=== PATIENT | male | born 1975 | race Caucasian/White ===

== ENCOUNTER 2016-09-05 19:48 | Observation (INO) | payer OTHER ==
[~2016-09-05] VITALS: Ht 172.7 cm; Wt 98.9 kg
--- NOTE | ~2016-09-05 | HC ---
[facility] [place] [address] CONSULTATION Name: HOLLANDDELMY Ghotra Shahbaz Room #: 215-P [facility] Lino Good#: [id number] Admission: 09/05/16 Attend Phys: Cory Morris MD Discharge: 09/06/16 Date of : 71 Report #: [id number] THIS REPORT FOR: //name// CC: NAS physician/PCP Cory Morris REASON FOR CONSULTATION: Chest pain, unstable angina. HISTORY OF PRESENT ILLNESS: The patient is a 40-year-old with known coronary artery disease, diabetes, hypertension, hyperlipidemia and tobacco abuse who presents with complaints of chest pain that lasted approximately 3 hours, that feels like his chest pain. There was no radiation. It was not really worse with any sorts of activities and appeared to improve after he received medications in the ER. He was transferred from [place] for further evaluation. He is currently chest pain-free. He denies PND, orthopnea. He denies exertional dyspnea. He denies presyncope or syncope. A 12-point review of systems was performed and was negative other than what I mentioned above, but he did have some nausea associated with the chest pain. PAST MEDICAL HISTORY: 1. Coronary artery disease, status post multiple stents to the RCA in 05/2015, again in 09/[address] Simon and most recently a stent to the proximal RCA on 07/28/2016 at [facility] with a Resolute drug-eluting stent that was 3.5 x 9 mm. The rest of his catheterization showed no disease in the left main. There was a 50%-70% lesion in the LAD followed by a long 50% lesion in the LAD in the mid segment. The circumflex was free of any significant disease. There were 2 other stents in the RCA in the proximal and distal segments and the stents were widely patent. 2. Hypertension. 3. Diabetes. 4. Hyperlipidemia. 5. Prior inferior myocardial infarction. 6. Echocardiogram on 07/26/2016 showing an EF of 55%-60% with inferior hypokinesis. 7. Tobacco abuse. SOCIAL HISTORY: Continues to smoke. FAMILY HISTORY: Mom had CAD in her 30s. ALLERGIES: INCLUDE PENICILLIN, CODEINE. ADDITIONAL MEDICATIONS: Please review. HOME MEDICATIONS: Please review, includes Effient. He reports that he missed a single dose of Effient yesterday, but has not missed any other doses. [facility] [address] [place] [address] CONSULTATION Name: HOLLANDDELMY Shahbaz Room #: 215-P [facility] Lino Good#: [id number] Admission: 09/05/16 Attend Phys: Cory Morris MD Discharge: 09/06/16 Date of : 71 Report #: [id number] PHYSICAL EXAMINATION: VITAL SIGNS: Temperature is 36.4, pulse 74, respiration 16, blood pressure 111/72, sats 94%. GENERAL: He is in no acute distress. HEENT: Oropharynx is clear. NECK: Supple; no thyromegaly. HEART: Regular rate and rhythm with no murmurs, rubs or gallops. LUNGS: Clear to auscultation bilaterally. ABDOMEN: Soft, nontender, nondistended, no hepatosplenomegaly. EXTREMITIES: No clubbing, cyanosis, edema. NEUROLOGIC: Cranial nerves 2-12 are intact. DATA: His 12-lead EKG shows sinus rhythm with evidence of an old inferior infarct and he has some mild ST elevations in the inferior leads, which are chronic and unchanged from all his prior EKGs including the ones from 05/2016. LABORATORY DATA: White count 7.3, hemoglobin 17, platelets 174. Sodium 131, potassium 3.9, BUN 9, creatinine 1.3, T- bilirubin mildly elevated at 1.4. AST, ALT are okay. Triglycerides are 3919, LDL unable to calculate, HDL is 19. His troponins have all been negative. ASSESSMENT: In summary, the patient is a 40-year-old with history of coronary artery disease presenting with chest pain. Thus far, his EKG shows no acute ischemia and his troponins remain negative. The etiology of his chest pain is unclear. I recommend undergoing a nuclear stress test tomorrow to rule out any ischemia. If this is normal, he can be discharged home. <ELECTRONICALLY SIGNED> By: Rosas Ruiz MD 09/14/16 0854 1108 194 Rosas Ruiz MD /nt
--- NOTE | ~2016-09-05 | EKG ---
[address] [address] ELECTROCARDIOGRAM REPORT Name: DELMY LINO Room #: [facility]#: [id number] Admission: 09/05/16 Attend Phys: Cory Morris MD Discharge: 09/06/16 Date of : 71 Report #: [id number] THIS REPORT FOR: //name// [facility] Test Date: 2016-09-06 Test Time: 01:29:27 Pat Name: DELMY LINO Department: Room: [facility] Gender: M Deputy Program Manager: [email or web address] : 1975 Requested By: Coco Lazcano Order Number: [id number] MD: Rosas Ruiz Measurements Intervals [place] Rate: 75 P: 47 [place]: 180 QRS: 14 QRSD: 111 T: -32 QT: 388 QTc: 434 Interpretive Statements Sinus rhythm Inferior infarct, age indeterminate Compared to ECG 09/28/2015 07:04:43 Ectopic atrial rhythm no longer present Myocardial infarct finding still present Electronically Signed On 09-06-2016 20:13:57 CDT by Rosas Ruiz [email or web address] <ELECTRONICALLY SIGNED> By: Rosas Ruiz MD 09/06/162012 0129 8 Rosas Ruiz MD /EPI
[~2016-09-05 19:48] MED LIST: ASPIR 8181 MG PO; ASPIRIN325 PO; ATORVASTATIN CA40 MG PO; CARISOPRODOL 3350 MG PO; COLACE100 MG PO; EFFIENT10 MG PO; FENOFIBRATE160 MG PO; HUMALOG100 UNIT/1 SUBQ; LEVEMIR SUBQ; LEVEMIR100 UNIT/1 SUBQ; LISINOPRIL10 MG PO; LISINOPRIL20 MG PO; METFORMIN HCL500 MG PO; NICOTINE TRANSD21 M1; NITROGLYCERIN0.4 MG; NORCO 10-325 T1 EACH PO; NOVOLOG100 UNIT/1 SUBQ; OMEPRAZOLE 20 M20 M1 PO; PRAVACHOL40 MG PO; PROTONIX 20 MG20 M1 PO; TOPROL XL25 MG PO; TOPROL XL50 MG PO; XANAX 0.25 MG0.25 MG PO; ZANAFLEX4 MG PO; ZOLOFT50 MG PO; ZYRTEC10 MG PO
[2016-09-05 21:05] VITALS: BP 147/99
[2016-09-05] MEDS ORDERED: NORCO 10-325 T1 EACH PO (21:23)
[2016-09-05] MEDS ORDERED: XANAX 0.5 MG0.5 MG PO (21:23)
[2016-09-05] MEDS ORDERED: AMARYL2 MG PO (21:24)
[2016-09-05] MEDS ORDERED: TOPAMAX100 MG PO (22:29)
[2016-09-05 23:55] VITALS: BP 118/80
[2016-09-06 02:12] LABS: ABSOLUTE NEUTROPHILS 3.5 thou/uL (1.4-8.2); BASOPHILS 1.1 % (0.0-2.0); EOSINOPHILS 3.6 % (0.0-3.0); HEMATOCRIT 42.5 % (42.0-52.0); HEMOGLOBIN 17.4 gm/dL (14.0-18.0); LYMPHOCYTES 39.4 % (24.0-44.0); MCHC 40.9 g/dL (28.0-37.0); MCV 88.1 fL (80.0-100.0); MONOCYTES 7.5 % (1.0-8.0); PLATELET COUNT 174 thou/uL (150-400); POLYS 48.4 % (36.0-66.0); RBC 4.82 mil/uL (4.50-6.00); RDW 13.5 % (10.5-14.5); WBC 7.3 thou/uL (4.0-11.0)
[2016-09-06 02:15] LABS: MANUAL DIFF NO
[2016-09-06 03:02] LABS: CHLORIDE 97 mmol/L (98-107); GLUCOSE 496 mg/dL (70-99); HDL CHOLESTEROL 19 mg/dL (>40); POTASSIUM 3.9 mmol/L (3.5-5.1); SODIUM 131 mmol/L (136-145)
[2016-09-06 03:47] LABS: TRIGLYCERIDE 3919 mg/dL (<150)
[2016-09-06 03:56] LABS: ANION GAP 7 mmol/L (7-16); BUN 9 mg/dL (7-18); CO2 27 mmol/L (21-32)
[2016-09-06 03:57] VITALS: BP 125/78
[2016-09-06 03:57] LABS: MAGNESIUM 1.7 mg/dL (1.8-2.4); TOTAL BILIRUBIN 1.4 mg/dL (<0.1-1.0)
[2016-09-06 03:58] LABS: ALBUMIN 2.6 g/dL (3.4-5.0); SERUM ASSESSMENT Gross Lipemia
[2016-09-06 04:00] LABS: CHOLESTEROL 405 mg/dL (<200)
[2016-09-06 05:45] LABS: CALCIUM 8.4 mg/dL (8.5-10.1); CREATININE 1.3 mg/dL (0.6-1.3); SGOT 16 U/L (15-37)
[2016-09-06 05:46] LABS: ALKALINE PHOSPHATASE 140 U/L (46-116); SGPT 19 U/L (30-65); TOTAL PROTEIN 5.6 g/dL (6.4-8.2)
[2016-09-06 08:00] VITALS: BP 111/72
[2016-09-06 11:50] VITALS: BP 136/87
[2016-09-06 13:26] LABS: AMYLASE 22 U/L (25-115)
== END 2016-09-06 15:25 | disposition left against medical advice (07) ==
LOC: 2N 19:48
PROVIDERS: Internal Medicine Cardiovascular Disease; Nurse Practitioner
DX: I25.119 Atherosclerotic heart disease of native coronary artery with unspecified angina pectoris (principal); E78.5 Hyperlipidemia, unspecified; I10 Essential (primary) hypertension; Z79.899 Other long term (current) drug therapy; Z79.82 Long term (current) use of aspirin; Z79.4 Long term (current) use of insulin; G89.29 Other chronic pain; F17.210 Nicotine dependence, cigarettes, uncomplicated; Z83.3 Family history of diabetes mellitus; Z82.49 Family history of ischemic heart disease and other diseases of the circulatory system; E11.65 Type 2 diabetes mellitus with hyperglycemia

== ENCOUNTER 2016-09-14 01:20 | Inpatient (IN) | payer OTHER ==
[~2016-09-14] VITALS: Ht 172.7 cm; Wt 92.6 kg
--- NOTE | ~2016-09-14 | EKG ---
[place] [address] [address] [place] [address] ELECTROCARDIOGRAM REPORT Name: HOLLANDDELMY Shahbaz Room #: 210-[facility] M.R.#: [id number] Admission: 09/14/16 Attend Phys: Zohra Platt Discharge: Date of : 71 Report #: [id number] THIS REPORT FOR: //name// [facility] Test Date: 2016-09-14 Test Time: 04:20:00 Pat Name: DELMY LINO Department: Room: 210 P Gender: M Assistant Track Coach: BREE : 1975 Requested By: Sarah Ramos Order Number: [id number] MD: Rich Pedro Measurements Intervals [place] Rate: 66 P: 43 DC: 186 QRS: 2 QRSD: 113 T: -28 QT: 417 QTc: 437 Interpretive Statements Sinus rhythm Inferior infarct, age indeterminate Poor R-wave progression Compared to ECG 09/06/2016 01:29:27 No significant changes Electronically Signed On 09-14-2016 8:38:32 CDT by Rich Pedro [email or web address] <ELECTRONICALLY SIGNED> By: Rich Pedro MD, [facility] 09/14/16 0838 0420 0420 Rich Pedro MD, [facility] /EPI
--- NOTE | ~2016-09-14 | H ---
[facility] [place] [address] HISTORY AND PHYSICAL Name: DELMY LINO Room #: 210-P [facility] IN .R.#: [id number] Admission: 09/14/16 Attend Phys: Zohra Platt Discharge: Date of : 71 Report #: [id number] THIS REPORT FOR: //name// CC: [facility] physician/PCP Zohra Platt DATE OF SERVICE: 09/14/2016 ATTENDING PHYSICIAN: Zohra Platt M.D. PRIMARY CARE PHYSICIAN: None. CHIEF COMPLAINT: Chest pain. HISTORY OF PRESENT ILLNESS: The patient is a 40-year-old male with known coronary artery disease. He has had at least 5 stents placed previously. He was just here last week on 09/05, and was seen by Cardiology and a stress test was ordered. Apparently he left against medical advice prior to the stress test being completed. He says he was not happy with his nurse and that is why he left. Since then, he has been in the ER in [place] on at least 3 different times within the last week; one time was for dizziness after following off a ladder and hitting his head, and his workup was negative. The other 2 times were for recurrent chest pain. Tonight he went to the [place] ER twice for chest pain. His initial cardiac workup was negative the first time, so he thought he could go back home and was planning to call his media production manager in the morning, but his chest pain returned. He said the pain is mostly on his left to mid chest. There is some radiation of the pain into his left jaw and the left arm. He has had some associated nausea but no vomiting as well as some shortness of breath. He has been taking some changes of his home blood pressure medications. He states that his last cardiac catheterization was in July 2016 at [facility], and he thinks he received another stent at that time. He was also here and had a heart catheterization in September 2015 after a non-STEMI, and he did receive a stent to the RCA at that time. His EF was noted to be 35%-40%. He has been known to have markedly elevated triglycerides up to greater than 3000, and has been on treatment for that. He was transferred to [facility] as a direct admission from [facility] after his initial workup in [place] was negative. In looking back through the [place] labs, all his troponins during these multiple ER visits over the week have been negative. He does currently have chest pain, rating it at 7/10, although he is sitting here resting comfortably and in no acute distress. PAST MEDICAL HISTORY: Hypertension, hyperlipidemia, severe hypertriglyceridemia, diabetes type 2, chronic back pain with spinal stenosis, coronary artery disease with a prior GA and depression. PAST SURGICAL HISTORY: Cholecystectomy, right wrist fusion, and bilateral knees [facility] [address] [place] [address] HISTORY AND PHYSICAL Name: HOLLAND,DELMY Shahbaz Room #: 210-P ADM IN M.R.#: [id number] Admission: 09/14/16 Attend Phys: Zohra Platt Discharge: Date of : 71 Report #: [id number] scopes and multiple cardiac catheterizations with a total of, he thinks, 5 stents placed. ALLERGIES: CODEINE causes swelling, PENICILLIN causes rash or hives, TORADOL causes a rash, COMPAZINE causes rash and TRAMADOL causes rash. HOME MEDICATIONS: Zyrtec 10 mg daily, nicotine patch daily, Effient 10 mg daily, fenofibrate 160 mg daily, Lipitor 80 mg at bedtime, metoprolol 50 mg daily, aspirin 325 mg daily, Reading 10/325 one tab q.4-6 hours p.r.n., Topamax 10 mg at bedtime, Zoloft 100 mg daily, Xanax 0.5 mg t.i.d. p.r.n., Prilosec 20 mg daily, metformin 1000 mg b.i.d., Levemir insulin 45 units at bedtime, Humalog insulin 25 units with meals and glimepiride 10 mg daily. SOCIAL HISTORY: The patient is a current smoker, smoking less than a pack of cigarettes per day. He had previously smoked up to 3 packs per day since smoking for around 30 years. He uses alcohol rarely. Denies any drug use. He does drink up to 400 ounces of Diet Mountain Dew a day. He lives with his significant other. FAMILY HISTORY: His mother had heart disease onset in her 30s. There are other family members who have had cancer, diabetes, hypertension and seizures. He did not know his father. REVIEW OF SYSTEMS: A 12-point review of systems was reviewed with the patient, otherwise negative unless stated in the HPI. PHYSICAL EXAMINATION: GENERAL: The patient is an alert male in no acute distress. VITAL SIGNS: Temperature is 36.7, heart rate 70, respirations 18, blood pressure 140/97 and oxygen 99% on room air. HEENT: PERRLA. Sclerae are nonicteric. Oral mucosa is pink and moist. NECK: Supple, no JVD noted. CARDIOVASCULAR: Normal S1 and S2. No murmurs, rubs or gallops. RESPIRATORY: Breath sounds are clear bilaterally, diminished in both bases. Breathing is nonlabored. ABDOMEN: Soft, nontender and nondistended with positive bowel sounds. VASCULAR: No edema noted. Pedal pulses are 2+. NEUROLOGIC: The patient is alert and oriented x 3. Speech is clear. He is moving all extremities equally. No focal neuro deficits noted. LABORATORY AND DIAGNOSTIC DATA: WBC is 5.4, hemoglobin is 16.6 and platelets 194. Sodium 134, potassium is 3.9, BUN 12, creatinine 0.9 and glucose is 318. LFTs are normal. Troponins negative. Lipase is 482. EKG showing sinus rhythm and troponins at [place] have all been negative. ASSESSMENT AND PLAN: [facility] [address] [place] [address] HISTORY AND PHYSICAL Name: DELMY LINO Room #: [facility] IN [facility].#: [id number] Admission: 09/14/16 Attend Phys: Zohra Platt Discharge: Date of : 71 Report #: [id number] 1. Recurrent angina. The patient does have known coronary artery disease with prior stents. We will consult Dr. Simon for further recommendations. Continue with morphine and nitro for pain control. 2. Diabetes type 2, this is uncontrolled. We will check a hemoglobin A1c. Continue with Humalog and Levemir regimen at home and add sliding scale insulin. 3. Severe triglyceridemia with hyperlipidemia. We will continue statin and fenofibrate. 4. Hypertension. Blood pressure has been stable, continue home meds except for metoprolol, which we will hold for a stress test. 5. Depression. Continue home meds. 6. Tobacco abuse. The patient has been advised to quit. He does wear a nicotine patch. 7. Deep venous thrombosis prophylaxis, place sequential compression devices. We will continue to follow the patient closely throughout the hospitalization and make changes based on clinical status. <ELECTRONICALLY SIGNED> By: JENA Mendez 09/15/16 0608 0648 0902 JENA Mendez /nt
[~2016-09-14 01:20] MED LIST changes: +AMARYL2 MG PO; +TOPAMAX100 MG PO; +XANAX 0.5 MG0.5 MG PO
[2016-09-14 04:17] VITALS: BP 4140/97
[2016-09-14 05:47] LABS: ALBUMIN 3.2 g/dL (3.4-5.0); CALCIUM 8.6 mg/dL (8.5-10.1); CREATININE 0.9 mg/dL (0.7-1.3); POTASSIUM 3.9 mmol/L (3.5-5.1); TOTAL BILIRUBIN 0.5 mg/dL (<0.1-1.0); TOTAL PROTEIN 6.5 g/dL (6.4-8.2)
[2016-09-14 07:08] VITALS: BP 101/59
[2016-09-14 17:16] VITALS: BP 129/86
[2016-09-14 20:14] VITALS: BP 145/81
[2016-09-15 03:29] VITALS: BP 118/77
[2016-09-15 07:12] LABS: GLYCOHEMOGLOBIN (HGB A1C) 10.7 % (4.8-5.6)
[2016-09-15 07:25] VITALS: BP 143/93
[2016-09-15] MEDS ORDERED: EFFIENT10 MG PO (09:11)
[2016-09-15] MEDS ORDERED: ZYRTEC10 MG PO (09:11)
[2016-09-15] MEDS ORDERED: FENOFIBRATE160 MG PO (09:12)
[2016-09-15] MEDS ORDERED: ASPIRIN325 PO (09:12)
[2016-09-15] MEDS ORDERED: TOPROL XL50 MG PO (09:12)
[2016-09-15] MEDS ORDERED: NORCO 10-325 T1 EACH PO (09:12)
[2016-09-15] MEDS ORDERED: ATORVASTATIN CA40 MG PO (09:12)
[2016-09-15] MEDS ORDERED: LISINOPRIL10 MG PO (09:12)
[2016-09-15] MEDS ORDERED: ZOLOFT50 MG PO (09:13)
[2016-09-15] MEDS ORDERED: METFORMIN HCL500 MG PO (09:13)
[2016-09-15] MEDS ORDERED: OMEPRAZOLE 20 M20 M1 PO (09:13)
[2016-09-15] MEDS ORDERED: ALPRAZOLAM 0.50.5 M1 PO (09:13)
[2016-09-15] MEDS ORDERED: TOPAMAX100 MG PO (09:13)
[2016-09-15] MEDS ORDERED: HUMALOG100 UNIT/1 SUBQ (09:14)
[2016-09-15] MEDS ORDERED: GLYBURIDE 5 MG T5 M1 PO (09:14)
[2016-09-15] MEDS ORDERED: LANTUS100 UNIT/M SUBQ (09:14)
[2016-09-15 11:20] VITALS: BP 159/91
[2016-09-15 12:50] VITALS: BP 159/91
[2016-09-15 13:59] VITALS: BP 159/91
[2016-09-15 14:00] VITALS: BP 159/91
== END 2016-09-15 13:48 | disposition home or self-care (01) | DRG 392 ==
LOC: 2N 01:20
PROVIDERS: Nurse Practitioner Acute Care
DX: K21.9 Gastro-esophageal reflux disease without esophagitis (principal); E78.5 Hyperlipidemia, unspecified; E78.1 Pure hyperglyceridemia; M54.9 Dorsalgia, unspecified; G89.29 Other chronic pain; I10 Essential (primary) hypertension; F17.210 Nicotine dependence, cigarettes, uncomplicated; F32.9 Major depressive disorder, single episode, unspecified; Z90.49 Acquired absence of other specified parts of digestive tract; Z88.6 Allergy status to analgesic agent; Z88.0 Allergy status to penicillin; Z88.8 Allergy status to other drugs, medicaments and biological substances; I25.2 Old myocardial infarction; Z80.9 Family history of malignant neoplasm, unspecified; Z83.3 Family history of diabetes mellitus; Z82.49 Family history of ischemic heart disease and other diseases of the circulatory system; Z81.8 Family history of other mental and behavioral disorders; Z95.5 Presence of coronary angioplasty implant and graft; Z83.6 Family history of other diseases of the respiratory system; E11.65 Type 2 diabetes mellitus with hyperglycemia; I25.10 Atherosclerotic heart disease of native coronary artery without angina pectoris
CPT/HCPCS: 10081

== ENCOUNTER 2017-01-28 14:12 | Inpatient (IN) | payer OTHER ==
[~2017-01-28] VITALS: Ht 172.7 cm; Wt 92.1 kg
--- NOTE | ~2017-01-28 | HC ---
[facility] [place] [address] CONSULTATION Name: HOLLANDDELMY Ghotra Shahbaz Room #: 216-P [facility] IN ..#: [id number] Admission: 01/28/17 Attend Phys: Jaylen Aparicio MD Discharge: Date of : 71 Report #: [id number] THIS REPORT FOR: //name// CC: NAS physician/PCP Jaylen Aparicio DATE OF SERVICE: 01/28/2017 INDICATION: Chest pains. HISTORY OF PRESENT ILLNESS: This is a 41-year-old gentleman with significant cardiac history presenting with chest pains. He has been experiencing a substernal chest pain radiating down the left arm for the past 10 days. It comes and goes, worse with exertion. It seems to be associated with shortness of breath. He was in the ER in [facility] several days ago, but in October. He now returns with recurrent symptoms to the ER in [place]. The initial troponin level was negative. He was subsequently transferred to [facility] for an urgent cardiac catheterization. He denies any history of nausea, fever, chills. PAST MEDICAL HISTORY: History of in May 2015, undergoing placement of 3 stents to the RCA. In 09/2015, he presented with unstable angina, found to have a total occlusion in the mid RCA between the stented area, undergoing placement of another stent. In July 2016, he presented to [facility] with chest pain, undergoing placement of a single stent in the proximal RCA. He was last hospitalized in September of this year at [facility] for chest pain, and a nuclear stress test was negative for ischemia. History of diabetes mellitus, hypertension, hypercholesterolemia and tobacco use. ALLERGIES: CODEINE. MEDICATIONS: Include insulin, aspirin, Effient 10 mg daily, metoprolol once a day, Lipitor and insulin regimen. SOCIAL HISTORY: Positive for tobacco use. FAMILY HISTORY: Mother with a history of an TN. REVIEW OF SYSTEMS: A full 10-point review of systems performed. Only the pertinent positives and negatives are described in the HPI. PHYSICAL EXAMINATION: VITAL SIGNS: Blood pressure is 130/70, heart rate is 80 beats per minute. GENERAL APPEARANCE: A well-developed, well-nourished male in no acute respiratory distress. [address] [address] CONSULTATION Name: DELMY LINO Room #: 216-P [facility] IN M.R.#: [id number] Admission: 01/28/17 Attend Phys: Jaylen Aparicio MD Discharge: Date of : 71 Report #: [id number] HEAD AND EYES: Normocephalic. Sclerae are anicteric. ENT: Oral mucosa moist. NECK: Supple. LUNGS: Clear to auscultation. CARDIAC: Regular rate and rhythm, S1, S2 positive. ABDOMEN: Soft. EXTREMITIES: No major joint deformities. No edema, no cyanosis. LABORATORY VALUES: ECG reveals sinus rhythm, inferior wall TN, T-wave inversions in the inferior leads. IMPRESSION AND PLAN: 1. Chest pain/acute coronary syndrome, given his unstable symptoms he will be taken directly to the cardiac laboratory cureman. 2. Diabetes mellitus, as per PCP. 3. Hypertension, continue with beta-rigo. 4. Hypercholesterolemia, continue with statin therapy. 5. Tobacco use, complete smoking cessation is recommended. <ELECTRONICALLY SIGNED> By: Jt Gooden MD 01/29/17 0806 1640 0029 Jt Gooden MD /nt
--- NOTE | ~2017-01-28 | CATHLAB ---
[facility] [facility] [place] [address] INVASIVE PROCEDURE REPORT Name: HOLLANDDELMY Shahbaz Room #: 216-P [facility] IN [facility]#: [id number] Admission: 01/28/17 Attend Phys: Jaylen Aparicio MD Discharge: Date of : 71 Date of Service: 01/29/17 0804 Report #: [id number] THIS REPORT FOR: //name// APPROVED REPORT Patient Details Patient Status: Out-Patient Room #: The patient is a 41 year-old male Event Personnel Kandace Bravo RTR Monitor, Niru Elias RN Monitor, Sandra Lorenz RTR Monitor, Tomas Jackson RN RN, Seb Shen RN RN, Handy Russell RN, Roly Montague, Jt Gooden Wet [employer] Dry Sugar Bin Operator Procedures Performed Left Heart Cath w/or w/o Coronaries [id number] [facility] Indication Dyspnea, Unstable angina Risk Factors Hypercholesterolemia, Coronary Artery DiseaseHypertension, Diabetes Tobacco History () Previous Procedures/Diagnoses Previous PCI, Previous VT Procedure Narrative The Right Groin^ was infiltrated with 1% Lidocaine subcutaneous anesthesia. A PINNACLE 4FR Sheath #[id number] sheath was inserted into the RFA 4FR^. Coronary angiography was performed using coronary diagnostic catheters. The right coronary system was accessed and visualized with a JR4 catheter. The left coronary system was accessed and visualized with a JL4 catheter. The left ventricle was accessed and visualized with a PIGTAIL catheter. Left ventricular/Aortic Valve gradient assessed via catheter pullback. Left ventriculogram was performed in 30 degree projection. Hemostasis was obtained with manual pressure following sheath removal without any complications. The patient tolerated the procedure well and there were no complications associated with the procedure. There was no hematoma. Intraoperative Conscious Sedation Sedation start time: 16:42 Case end Time: [facility] [address] [place] [address] INVASIVE PROCEDURE REPORT Name: DELMY LINO Room #: 216-P [facility] IN [facility]#: [id number] Admission: 01/28/17 Attend Phys: Jaylen Aparicio MD Discharge: Date of : 71 Date of Service: 01/29/17 0804 Report #: [id number] Fentanyl mcg Versed mg Fluoro Time: 2.00 minutes Dose: DAP 4044.49 cGycm2 Contrast Type and Amount: Omnipaque 105 ml Coronary Angiography The patient's coronary anatomy is right dominant. Diagnostic Cath Left Main Moderate to large size caliber vessel, patent with no flow-limiting lesions. LAD Moderate size caliber vessel, with mild disease in proximal segment- 30%. Diagonal 1 Moderate size caliber vessel, patent with no flow-limiting lesions. Diagonal 2 Very small size caliber vessel with moderate disease in proximal segment. Circumflex Supplies one moderate size obtuse marginal artery. OM1 Mild plaquing in the proximal segment, 30%. Divides into 2 branches in the distal segment. Right Coronary Patent stent in the proximal and mid segments of the RCA. Patent stent in the distal segment of the RCA with moderate restenosis, 50%. R PDA Patent vessel with moderate disease at the terminal end. RPLV Patent vessel with no flow-limiting lesions. Left Ventriculography The left ventricle is mildly dilated in size with decreased contractility. The left ventricular ejection fraction is estimated to be 40-45%. Left ventricular wall motion abnormalities are present. There is hypokinesis of the inferior wall. Hemodynamics The aortic pressure is 135/86 mmHg with a mean of 95 mmHg. The left ventricular pressure is 133/14 mmHg with a mean of mmHg. The left ventricular end diastolic pressure is 19 mmHg. Conclusion 1. Patent stents in the proximal and mid segments of the RCA with minimal restenosis. 2. Moderate restenosis within the stent in the distal RCA segment. [facility] [address] [place] [address] INVASIVE PROCEDURE REPORT Name: DELMY LINO Room #: 216-P [facility] IN ..#: [id number] Admission: 01/28/17 Attend Phys: Jaylen Aparicio MD Discharge: Date of : 71 Date of Service: 01/29/17 0804 Report #: [id number] 3. Mild to moderate segmental LV dysfunction. 4. Recommend medical therapy. Recommendations Smoking Cessation Aggressive Medical Therapy <ELECTRONICALLY SIGNED> By: Jt Gooden MD 01/29/17803 3 3 Jt Gooden MD /INF
[~2017-01-28 14:12] MED LIST changes: +ALPRAZOLAM 0.50.5 M1 PO; +GLYBURIDE 5 MG T5 M1 PO; +LANTUS100 UNIT/M SUBQ
[2017-01-28 17:38] VITALS: BP 132/87
[2017-01-28 17:45] VITALS: BP 132/87
[2017-01-28 18:01] LABS: HEMATOCRIT 44.2 % (42.0-52.0); HEMOGLOBIN 17.7 gm/dL (14.0-18.0); MCH 35.5 pg (26.0-34.0); MCHC 39.9 g/dL (28.0-37.0); MCV 89.1 fL (80.0-100.0); RBC 4.97 mil/uL (4.50-6.00); RDW 13.6 % (10.5-14.5); WBC 8.6 thou/uL (4.0-11.0)
[2017-01-28 18:15] VITALS: BP 123/90
[2017-01-28 18:15] LABS: TROPONIN-I < 0.04 ng/mL (<0.04-0.07)
[2017-01-28 18:41] VITALS: BP 135/87
[2017-01-28 19:00] VITALS: BP 113/71
[2017-01-28 19:07] LABS: ANION GAP 8 mmol/L (7-16); BUN 11 mg/dL (7-18); CHLORIDE 98 mmol/L (98-107); CO2 23 mmol/L (21-32); CREATININE 0.7 mg/dL (0.7-1.3); POTASSIUM 3.7 mmol/L (3.5-5.1); SODIUM 129 mmol/L (136-145)
[2017-01-28 19:08] LABS: ALBUMIN 3.8 g/dL (3.4-5.0); ALKALINE PHOSPHATASE 100 U/L (46-116); CALCIUM 8.3 mg/dL (8.5-10.1); GLUCOSE 289 mg/dL (74-106); SGOT 13 U/L (15-37); SGPT 30 U/L (30-65); TOTAL BILIRUBIN 0.2 mg/dL (<0.1-1.0); TOTAL PROTEIN 6.1 g/dL (6.4-8.2)
[2017-01-28 20:10] VITALS: BP 130/84
[2017-01-29] VITALS: BP 146/103
[2017-01-29 03:58] VITALS: BP 152/105
[2017-01-29 04:08] LABS: GLYCOHEMOGLOBIN (HGB A1C) 9.5 % (4.8-5.6)
[2017-01-29 04:12] LABS: HEMATOCRIT 42.4 % (42.0-52.0); HEMOGLOBIN 16.5 gm/dL (14.0-18.0); MCH 34.8 pg (26.0-34.0); MCHC 38.9 g/dL (28.0-37.0); MCV 89.6 fL (80.0-100.0); RBC 4.73 mil/uL (4.50-6.00); RDW 13.7 % (10.5-14.5); WBC 8.3 thou/uL (4.0-11.0)
[2017-01-29 04:27] LABS: POTASSIUM 4.2 mmol/L (3.5-5.1)
[2017-01-29 04:54] LABS: CALCIUM 8.8 mg/dL (8.5-10.1)
[2017-01-29 05:17] LABS: CHOLESTEROL 378 mg/dL (<200); HDL CHOLESTEROL 25 mg/dL (>40); SERUM ASSESSMENT Gross Lipemia; TC:HDL 15.1 Ratio (Not establshd); TRIGLYCERIDE 5037 mg/dL (<150); VLDL 1007 mg/dL (<40)
[2017-01-29 08:30] VITALS: BP 150/104
[2017-01-29 11:21] VITALS: BP 145/91
[2017-01-29] MEDS ORDERED: FENOFIBRATE160 MG PO (11:59)
[2017-01-29] MEDS ORDERED: EFFIENT10 MG PO (11:59)
[2017-01-29] MEDS ORDERED: TOPROL XL50 MG PO (12:00)
[2017-01-29] MEDS ORDERED: ATORVASTATIN CA40 MG PO (12:00)
[2017-01-29] MEDS ORDERED: LISINOPRIL10 MG PO (12:00)
[2017-01-29] MEDS ORDERED: NORCO 10-325 T1 EACH PO (12:01)
[2017-01-29] MEDS ORDERED: TOPAMAX100 MG PO (12:01)
[2017-01-29] MEDS ORDERED: OMEPRAZOLE 20 M20 M1 PO (12:02)
[2017-01-29] MEDS ORDERED: ALPRAZOLAM 0.50.5 M1 PO (12:02)
[2017-01-29] MEDS ORDERED: ZOLOFT50 MG PO (12:02)
[2017-01-29] MEDS ORDERED: HUMALOG100 UNIT/1 SUBQ (12:03)
[2017-01-29] MEDS ORDERED: METFORMIN HCL500 MG PO (12:03)
[2017-01-29] MEDS ORDERED: LANTUS100 UNIT/M SUBQ (12:03)
[2017-01-29] MEDS ORDERED: GLYBURIDE 5 MG T5 M1 PO (12:04)
[2017-01-29 13:00] VITALS: BP 145/91
== END 2017-01-29 13:50 | disposition home or self-care (01) | DRG 392 ==
LOC: 2N 14:12
PROVIDERS: Internal Medicine Cardiovascular Disease; Nurse Practitioner Acute Care
PROC: B2151ZZ Fluoroscopy of Left Heart using Low Osmolar Contrast (ICD-10-PCS; principal; 2017-01-29)
PROC: B2111ZZ Fluoroscopy of Multiple Coronary Arteries using Low Osmolar Contrast (ICD-10-PCS; principal; 2017-01-29)
PROC: 4A023N7 Measurement of Cardiac Sampling and Pressure, Left Heart, Percutaneous Approach (ICD-10-PCS; principal; 2017-01-29)
DX: K21.9 Gastro-esophageal reflux disease without esophagitis (principal); F11.20 Opioid dependence, uncomplicated; E11.9 Type 2 diabetes mellitus without complications; I10 Essential (primary) hypertension; E78.00 Pure hypercholesterolemia, unspecified; F17.210 Nicotine dependence, cigarettes, uncomplicated; I25.10 Atherosclerotic heart disease of native coronary artery without angina pectoris; M54.9 Dorsalgia, unspecified; G89.29 Other chronic pain; M48.00 Spinal stenosis, site unspecified; E78.5 Hyperlipidemia, unspecified; Z79.82 Long term (current) use of aspirin; Z79.899 Other long term (current) drug therapy; Z88.6 Allergy status to analgesic agent; Z82.49 Family history of ischemic heart disease and other diseases of the circulatory system; Z88.0 Allergy status to penicillin; Z88.8 Allergy status to other drugs, medicaments and biological substances; Z90.49 Acquired absence of other specified parts of digestive tract; Z83.3 Family history of diabetes mellitus; Z80.9 Family history of malignant neoplasm, unspecified
CPT/HCPCS: 10081